=== PATIENT | female | born 1990 ===

== ENCOUNTER 2017-08-29 15:18 | Emergency (ER) | payer SELFPAY ==
[2017-08-29 15:31] VITALS: BP 117/80; RESP 16; TEMP 98.7
[2017-08-29] MEDS ORDERED: Amoxicillin-Clav 875-125 mg Tab PO STA (15:55)
[2017-08-29] MEDS ORDERED: Tmp-Smz 800 mg-160 mg DS Tab PO STA (15:55)
--- NOTE | 2017-08-29 16:05 | ED PDOC ---
Arrival/HPI - General Chief Complaint: Allergic Reaction Time Seen by Provider: 08/29/17 15:23 Historian: Patient - History of Present Illness Narrative History of Present Illness (Text): 08/29/17 16:10 27yr old female presents today with a 2 day history of pruritis to the eyelids and neck. pt also with 2 day history of sore throat. pt denies fever/chills. no cp or sob. pt denies cough. pt states she noticed her eyes were red 2 days ago so she applied warm compresses and yesterday applied OTC eye drops for red eyes. pt noticed that eye lids started to swell. pt denies pain to the eyes or around the eyes. pt denies pain with eye movement. pt denies blurred vision. pt states the eye lids feel "itchy" as well as the neck. Pt denies difficulty swallowing, denies feeling of throat closing but is c/o sore throat. pt states she noticed redness in the back of her throat. pt denies taking motrin or tylenol at home. denies sick contacts. no other complaints. Past Medical History - Provider Review Nursing Documentation Reviewed: Yes - Travel History Have you recently traveled outside [place] w/in the past 3 mons?: No - Tetanus Immunization Tetanus Immunization: Unknown - Psychiatric Hx Psychophysiologic Disorder: No Hx Substance Use: Yes Family/Social History - Physician Review Nursing Documentation Reviewed: Yes Family/Social History: Unknown Family HX Smoking Status: Never Smoked Hx Alcohol Use: Yes Frequency of alcohol use: Socially Hx Substance Use: Yes Allergies/Home Meds Allergies/Adverse Reactions: Allergies No Known Allergies Allergy (Verified 08/29/17 15:27) Review of Systems - Review of Systems Constitutional: absent: Fatigue, Fevers Eyes: Other (eye pruritis). absent: Vision Changes, Photophobia, Eye Pain ENT: Sore Throat. absent: Sinus Congestion Respiratory: absent: SOB, Cough Cardiovascular: absent: Chest Pain, Palpitations Gastrointestinal: absent: Abdominal Pain, Nausea, Vomiting Musculoskeletal: absent: Arthralgias Skin: Rash, Pruritis Neurological: absent: Headache, Dizziness Psychiatric: absent: Anxiety, Depression Physical Exam Vital Signs Reviewed: Yes Vital Signs Temp Pulse Resp BP Pulse Ox 08/29/17 15:27 98.7 F 90 16 117/80 95 Temperature: Afebrile Blood Pressure: Normal Pulse: Regular Respiratory Rate: Normal Appearance: Positive for: Well-Appearing, Non-Toxic, Comfortable Pain Distress: None Mental Status: Positive for: Alert and Oriented X 3 - Systems Exam Head: Present: Atraumatic, Swelling (+ minimal periorbital erythema. + minimal edema noted to the upper eye lid of left eye. no lower eyelid swelling. non tender. ) Pupils: Present: PERRL Extroacular Muscles: Present: EOMI, Other (no pain with eye movement). No: Entrapment Conjunctiva: Present: Normal. No: Injected Ears: Present: Normal, NORMAL TM. No: Erythema Mouth: Present: Moist Mucous Membranes, Normal Lips, Normal Tounge, Normal Teeth. No: Drooling, Trismus Pharnyx: Present: ERYTHEMA. No: Normal, EXUDATE, TONSILS ENLARGED, Peritonsilar Swelling, Uvular Deviation, Muffled/Hoarse Voice Nose (External): Present: Atraumatic Nose (Internal): Present: Normal Inspection Neck: Present: Normal Range of Motion, Trachea Midline. No: Lymphadenopathy Respiratory/Chest: Present: Clear to Auscultation, Good Air Exchange. No: Respiratory Distress, Accessory Muscle Use Cardiovascular: Present: Regular Rate and Rhythm, Normal S1, S2. No: Murmurs Neurological: Present: GCS=15, Speech Normal Skin: Present: Warm, Dry, Normal Color. No: Rashes Psychiatric: Present: Alert, Oriented x 3 Medical Decision Making ED Course and Treatment: 08/29/17 16:17 27yr old female presents today with swelling and redness to left trisha orbital region. no trauma or injury. vitals stable. afebrile. denies any pain. will cover patient with bactrim and augmentin for periorbital cellulitis. will add benadryl and pepcid for possible allergic causes. pt was advised to f/u with the ENT specialist and eye doctor within the next 2 days. advised immediate return if symptoms worsen, persist or if new symptoms develop. I had a long indepth conversation with the patient discussing trisha-orbital vs orbital cellulitis. stressed importance of immediate return if signs of developing orbital cellulitis develops or if patient has any concerns for throat swelling/worsening pain or swelling. Patient verbalizes understanding of discharge instructions and need for immediate followup. all aspects of this case were discussed the attending of record. Impression; trisha-orbital cellulitis, pharynigitis Augmentin 1 tablet Twice daily 10 days Bactrim 1 tablet twice daily 7 days Benadryl every 6 hours as needed for itch Pepcid one tablet daily Follow-up with the eye doctor within the next 2 days Follow-up the primary care physician within the next 2 days Follow-up the ENT specialist within the next 2 days Return immediately if symptoms worsen persist or if new symptoms develop: High fevers, pain with eye movement, headaches, dizziness or if any other concerning symptoms develop - Medication Orders Current Medication Orders: Amoxicillin/Clavulanate Potassium (Augmentin 875 Mg-125 Mg Tab) 1 tab PO STAT STA PRN Reason: Protocol Stop: 08/29/17 15:56 Diphenhydramine HCl (Benadryl) 25 mg PO ONCE ONE Stop: 08/29/17 15:56 Famotidine (Pepcid) 20 mg PO STAT STA Stop: 08/29/17 15:56 Trimethoprim/Sulfamethoxazole (Bactrim Ds Tab) 1 tab PO STAT STA PRN Reason: Protocol Stop: 08/29/17 15:56 Disposition/Present on Arrival - Present on Arrival Any Indicators Present on Arrival: No History of DVT/PE: No History of Uncontrolled Diabetes: No Urinary Catheter: No History of Decub. Ulcer: No History Surgical Site Infection Following: None - Disposition Have Diagnosis and Disposition been Completed?: Yes Diagnosis: Periorbital cellulitis, Pharyngitis Disposition: HOME/ ROUTINE Disposition Time: 16:02 Patient Plan: Discharge Patient Problems: Current Active Problems Problem Status Onset Periorbital cellulitis Acute Pharyngitis Acute Condition: GOOD Discharge Instructions (ExitCare): Cellulitis (Skin Infection), Adult (DC), Cellulitis (ED) Additional Instructions: Augmentin 1 tablet Twice daily 10 days Bactrim 1 tablet twice daily 7 days Benadryl every 6 hours as needed for itch Pepcid one tablet daily Follow-up with the eye doctor within the next 2 days Follow-up the primary care physician within the next 2 days Follow-up the ENT specialist within the next 2 days Return immediately if symptoms worsen persist or if new symptoms develop: High fevers, pain with eye movement, headaches, dizziness or if any other concerning symptoms develop Thank you for letting us take care of you today. Your provider was Teodora Manning PA-C/ Dr. Lowe. You were treated for Trisha-orbital cellulitis and Pharyngitis. The emergency medical care you received today was directed at your acute symptoms. If you were prescribed any medication, please fill it and take as directed. It may take several days for your symptoms to resolve. Return to the Emergency Department if your symptoms worsen, do not improve, or if you have any other problems. Please contact your doctor or call one of the physicians/clinics you have been referred to that are listed on the Patient Visit Information form that is included in your discharge packet. Bring any paperwork you were given at discharge with you along with any medications you are taking to your follow up visit. Our treatment cannot replace ongoing medical care by a primary care provider (PCP) outside of the emergency department. Thank you for allowing the [facility] team to be part of your care today. If you had an X-Ray or CT scan: A Radiologist will review the ED reading if any change in treatment is needed we will contact you. If you had a blood, urine, or wound culture: It will take several days for the results, if any change in treatment is needed we will contact you. If you had an STI test: It will take 48 hours for the results. Please call after 1 week if you have not heard back. Prescriptions: Amoxicillin/Clavulanate [Augmentin 875 MG-125 MG] 1 tab PO BID #20 tab DiphenhydrAMINE [Benadryl] 25 mg PO Q6H #20 cap Famotidine [Pepcid] 20 mg PO DAILY #30 tab Sulfamethoxazole/Trimethoprim [Bactrim DS 800 mg-160 mg] 1 tab PO BID #14 tab Referrals: Ben Quinn MD [Staff Provider] - Follow up with primary Uche Keller DO [Doctor Osteopathy] - Follow up with primary Marco A Rodriguez MD [Staff Provider] - Follow up with primary George Bernal MD [Staff Provider] - Follow up with primary Forms: [employer] (Thai), WORK NOTE
[2017-08-29 16:44] VITALS: PULSE 88; O2SAT 98
== END 2017-08-29 16:43 | disposition home or self-care (01) ==
LOC: ED 15:18 → MERGE 15:18 → ED 16:43
DX: J02.9 Acute pharyngitis, unspecified (principal); L03.213 Periorbital cellulitis